=== PATIENT | female | born 1995 | race Caucasian/White ===

== ENCOUNTER 2023-08-08 07:55 | Outpatient (RCR) | payer OTHER, SELFPAY | END 2023-08-08 23:59 | disposition home or self-care (01) | LOC: RPT 07:55 | PROVIDERS: ATTENDING PHYSICIAN Physician Assistant Medical | DX: M54.16 Radiculopathy, lumbar region (principal); M17.0 Bilateral primary osteoarthritis of knee; M22.2X9 Patellofemoral disorders, unspecified knee; Z73.6 Limitation of activities due to disability; R26.2 Difficulty in walking, not elsewhere classified; M62.81 Muscle weakness (generalized) | CPT/HCPCS: 97110; 97112; 97163; 97535 ==

== ENCOUNTER 2023-09-11 13:59 | Outpatient (RCR) | payer OTHER, SELFPAY | END 2023-09-11 23:59 | disposition home or self-care (01) | LOC: RPT 13:59 | PROVIDERS: ATTENDING PHYSICIAN Physician Assistant Medical | DX: M54.16 Radiculopathy, lumbar region (principal); M17.0 Bilateral primary osteoarthritis of knee; Z73.6 Limitation of activities due to disability; M22.2X9 Patellofemoral disorders, unspecified knee; R26.2 Difficulty in walking, not elsewhere classified; M62.81 Muscle weakness (generalized); M32.9 Systemic lupus erythematosus, unspecified | CPT/HCPCS: 97014; 97110; 97112; 97535 ==

== ENCOUNTER → 2023-10-02 15:26 | Outpatient (REF) | payer OTHER, SELFPAY | LOC: RAD 15:26 | PROVIDERS: ATTENDING PHYSICIAN Internal Medicine; FAMILY PHYSICIAN Family Medicine | DX: R60.9 Edema, unspecified (principal) | CPT/HCPCS: 93971 ==

== ENCOUNTER 2023-10-08 17:22 | Emergency (ER) | payer OTHER, SELFPAY ==
[2023-10-08 17:23] VITALS: BP 132/108
--- NOTE | 2023-10-08 18:49 | ED.GENMED ---
History of Present Illness
General
Chief Complaint: DVT/Possible Blood Clot
Source: patient
Exam Limitations: none
Time Seen by Provider: 10/08/23 17:55
Nursing documentation reviewed up to this point in time: agreed with
Travel History
Have you had any contact with someone who has COVID-19?: No
Do you have any symptoms of coronavirus? Fever > 100 degrees, chills, cough, shortness of breath, sore throat, loss of taste or smell, muscle aches, or headache?: No
History of Present Illness
History of Present Illness:
Patient is a 27 yo female with PMH of SLE, currently on Benlysta infusions, methotrexate, Plaquenil, who presents to the emergency department for an issue with getting her medication. Patient reports that approximately 2 weeks ago, she started to
notice what appeared to be bruising over her left leg which then moved to the right leg. Pt reports that the right leg was painful. Pt spoke with her interior systems carpenter, who ordered a DVT ultrasound of the leg. Patient was initially told that there
was no DVT, however, she was contacted by her interior systems carpenter today and was told that there actually was a clot and that she needed to be on anticoagulation. Pt went to the pharmacy to meat pickler the anticoagulant, which was fondaparinux. When the
patient went there, the pharmacy told her that it was not in stock and was not in stock in any local pharmacies. Pt was unable to get in touch with her interior systems carpenter for an alternative and was concerned about the blood clot traveling to her lungs
so she decided to come to the emergency department. Pt reports that while she was in triage, she was able to get in touch with her interior systems carpenter who told her that she could be on Lovenox instead. He also informed her that he would have her follow
up with vascular surgery as an outpatient. Pt denies history of VTE, denies chest pain, shortness of breath.
Past History
Past History
ED Past Medical History: Other (lupus, lumbar herniation)
ED Past Surgical History: Other (rfa)
Social History
Tobacco: Non-smoker
Alcohol: Occasional
Drug: Marijuana
Personal:
Living: with family
Review of Systems
Review of Systems
Allergies reviewed?: Yes
All Other Systems: ROS reviewed and negative except as documented in HPI and ROS
Constitutional: Reports no symptoms
EENT: Reports no symptoms
Respiratory: Reports no symptoms
Cardiac: Reports no symptoms
ABD/GI: Reports no symptoms
: Reports no symptoms
Musculoskeletal: Reports no symptoms
Skin: Reports other (bruising to the right calf which is resolving)
Neurological: Reports no symptoms
Endocrine: Reports no symptoms
Hematologic/Lymphatic: Reports no symptoms
Psychiatric: Reports no symptoms
Phy Exam
General Physical Exam
General Presentation: well appearing and no apparent distress
General Skin: warm and dry
General Habitus: normal
General Mental: alert
General Hydration: appears well hydrated
ENT Exam
ENT Exam: EOMI, pharynx normal, neck supple and normocephalic
Eye Exam
Eye Exam: PERRL, cornea clear and conjunctiva normal
Cardiovascular Exam
Cardiovascular Exam: regular rate/rhythm, no edema, no murmur and normal peripheral pulses
Pulmonary Exam
Pulmonary Exam: lungs clear, no respiratory distress, no rales, no crackles, no rhonchi, no stridor, no wheezing and no cough
Neurological Exam
Neurological Exam: alert, oriented x3, no motor deficits and speech normal
Musculoskeletal Exam
Musculoskeletal Exam: full ROM, no edema and other (resolving ecchmyosis to the right posterior calf, there is no erythema, no swelling, no ttp, 2+ DP pulses bilaterally, sensation intact to light touch distally bilaterally)
Skin Exam
Skin Exam: normal color, warm/dry, no rash and no petechia
Psychiatric Exam
Psychiatric Exam: normal mood/affect
Course
Orders/Labs/Results
Orders:
Orders
10/08/23 18:48
Enoxaparin Sodium [Lovenox] 40 mg SC NOW STA
Vital Signs
Initial and Last Documented VS:
Initial Vital Signs
Temp Pulse Resp BP Pulse Ox
98.7 F 107 16 132/108 98
10/08/23 17:23 10/08/23 17:23 10/08/23 17:23 10/08/23 17:23 10/08/23 17:23
Last Documented Vital Signs
Temp Pulse Resp BP Pulse Ox
98.0 F 98 16 128/88 99
10/08/23 19:22 10/08/23 19:22 10/08/23 19:22 10/08/23 19:22 10/08/23 19:22
*Critical Care Note
Total Time (30-74mins, 75-104mins- exclusive of procedures): Not Applicable
Update Note
Update Note:
27 yo female p/w difficulty obtaining a blood thinner prescribed to her by her interior systems carpenter for superficial thrombosis seen on outpatient ultrasound 1 week ago. Pt denies chest pain, shortness of breath. On arrival, VSS, afebrile. On exam, pt
is well-appearing and in NAD, she is neurovascularly intact. Discussed with ED attending, anticoagulation not typically prescribed for superficial thrombosis, however, interior systems carpenter may have wanted her on it due to concerns for a clotting
disorder. Transportation Dispatcher had mentioned Lovenox as an alternative to the fondaparinux that he had prescribed. Will give a dose of Lovenox to the patient here tonight and have the patient contact her interior systems carpenter tomorrow about a
prescription/Lovenox teaching. Patient is safe for discharge to home with return precautions, she expressed understanding of the plan and agreed.
ED Attending Note
-
Portions of this chart may have been created with voice recognition software.� Occasional wrong word or��sound alike� substitutions may have occurred due to the inherent limitations of voice recognition software.
Discharge Plan
Departure
Patient Disposition: Home (Routine Discharge)
Date of Disposition: 10/08/23
Time of Disposition: 18:57
Patient with high blood pressure during this ER visit?: Yes
Condition: Good
Covid-19: Not Applicable
Discharge Problem:
Superficial thrombosis of lower extremity
Instructions: Superficial vein phlebitis and thrombosis
Prescriptions:
No Action
hydroxychloroquine 200 MG tablet
200 mg PO BID
loratadine-pseudoephedrine 240 MG/10 MG tablet extended release 24 hr
1 tab PO PRN PRN (Reason: seasonal allergies)
PNV cmb#95-ferrous fumarate-FA [ Multivitamins] 1 EACH tablet
1 ea PO DAILY
acetaminophen 325 MG tablet
650 mg PO Q4HPRN PRN (Reason: mild pain) 0RF
sennosides-docusate sodium 1 TABLET tablet
1 tab PO DAILYPRN PRN (Reason: constipation) 0RF
ibuprofen 600 MG tablet
600 mg PO Q4HPRN PRN (Reason: moderate pain/cramps) 0RF
cyclobenzaprine 10 mg tablet
20 mg PO TID PRN (Reason: muscle spasm) Qty: 10 0RF
Referrals:
Daphnie Laboy, [Family Provider] - Tomorrow
Activity Restrictions/Additional Instructions:
You were seen in the emergency department for a recently diagnosed superficial thrombosis of your leg. You were given a dose of a blood thinner called Lovenox today. Please continue to rest and elevate your legs and use warm compresses to the
affected area for 20 minutes at a time 4-5 times a day. Please contact your doctor tomorrow to determine if they want you to continue the Lovenox and for a prescription for the same if they do. Please return to the emergency department for
increasing pain, swelling, redness, streaking redness, chest pain, shortness of breath, fever greater than 100.4F, or for any other worsening or concerning symptoms.
Interventions
Interventions:
*Risk Screen - Suicide Last Done: 10/08/23 19:22
*General Assessment Last Done: 10/08/23 19:22
*Neglect/Abuse Screening Last Done: 10/08/23 19:22
ED- Fall Risk Assessment Last Done: 10/08/23 19:22
*ED COVID-19 Vaccine History Last Done: 10/08/23 17:23
*Nursing Disposition Last Done: 10/08/23 19:22
ED- Cardiac Assessment Last Done: 10/08/23 19:21
ED- Pulmonary Assessment Last Done: 10/08/23 19:21
ED-Peripheral Vascular Assessment Last Done: 10/08/23 19:21
ED-Skin Assessment Last Done: 10/08/23 19:21
Discharge Date and Time
Discharge Date/Time: 10/08/23 19:23
Print Language: SAMI
[2023-10-08] MEDS: LOVENOX 40 MG SC (19:14)
[2023-10-08 19:22] VITALS: BP 128/88
== END 2023-10-08 19:23 | disposition home or self-care (01) ==
LOC: EMR 17:22
PROVIDERS: EMERGENCY PHYSICIAN Student in an Organized Health Care Education/Training Program; FAMILY PHYSICIAN Family Medicine
DX: I82.811 Embolism and thrombosis of superficial veins of right lower extremity (principal); R03.0 Elevated blood-pressure reading, without diagnosis of hypertension
CPT/HCPCS: 96372; 99284

== ENCOUNTER 2023-10-09 07:55 | Outpatient (RCR) | payer OTHER, SELFPAY | END 2023-10-09 23:59 | disposition home or self-care (01) | LOC: RPT 07:55 | PROVIDERS: ATTENDING PHYSICIAN Physician Assistant Medical | DX: M54.16 Radiculopathy, lumbar region (principal); M17.0 Bilateral primary osteoarthritis of knee; Z73.6 Limitation of activities due to disability; M22.2X9 Patellofemoral disorders, unspecified knee; R26.2 Difficulty in walking, not elsewhere classified; M62.81 Muscle weakness (generalized); M32.9 Systemic lupus erythematosus, unspecified | CPT/HCPCS: 97110; 97112; 97535 ==

== ENCOUNTER 2023-11-13 06:30 | Outpatient (RCR) | payer OTHER, SELFPAY | END 2023-11-13 23:59 | disposition home or self-care (01) | LOC: RPT 06:30 | PROVIDERS: ATTENDING PHYSICIAN Physician Assistant Medical | DX: M54.16 Radiculopathy, lumbar region (principal); M17.0 Bilateral primary osteoarthritis of knee; Z73.6 Limitation of activities due to disability; M22.2X9 Patellofemoral disorders, unspecified knee; R26.2 Difficulty in walking, not elsewhere classified; M62.81 Muscle weakness (generalized); M32.9 Systemic lupus erythematosus, unspecified | CPT/HCPCS: 97010; 97110 ==

== ENCOUNTER 2023-12-11 15:19 | Outpatient (RCR) | payer OTHER, SELFPAY | END 2023-12-11 23:59 | disposition home or self-care (01) | LOC: RPT 15:19 | PROVIDERS: ATTENDING PHYSICIAN Physician Assistant Medical | DX: M54.16 Radiculopathy, lumbar region (principal); M17.0 Bilateral primary osteoarthritis of knee; Z73.6 Limitation of activities due to disability; M22.2X9 Patellofemoral disorders, unspecified knee; R26.2 Difficulty in walking, not elsewhere classified; M62.81 Muscle weakness (generalized); M32.9 Systemic lupus erythematosus, unspecified | CPT/HCPCS: 97110; 97112 ==

== ENCOUNTER 2024-01-14 11:57 | Outpatient (RCR) | payer OTHER, SELFPAY | END 2024-01-14 23:59 | disposition home or self-care (01) | LOC: RPT 11:57 | PROVIDERS: ATTENDING PHYSICIAN Physician Assistant Medical | DX: M54.16 Radiculopathy, lumbar region (principal); M17.0 Bilateral primary osteoarthritis of knee; M17.11 Unilateral primary osteoarthritis, right knee; M17.12 Unilateral primary osteoarthritis, left knee; M22.2X9 Patellofemoral disorders, unspecified knee; M22.2X1 Patellofemoral disorders, right knee; M22.2X2 Patellofemoral disorders, left knee; R26.2 Difficulty in walking, not elsewhere classified; M32.9 Systemic lupus erythematosus, unspecified; Z73.6 Limitation of activities due to disability; M62.81 Muscle weakness (generalized) | CPT/HCPCS: 97110; 97112; 97535 ==

== ENCOUNTER 2024-02-12 10:20 | Outpatient (RCR) | payer OTHER, SELFPAY | END 2024-02-12 23:59 | disposition home or self-care (01) | LOC: RPT 10:20 | PROVIDERS: ATTENDING PHYSICIAN Physician Assistant Medical | DX: M54.16 Radiculopathy, lumbar region (principal); M17.0 Bilateral primary osteoarthritis of knee; Z73.6 Limitation of activities due to disability; M22.2X1 Patellofemoral disorders, right knee; M22.2X9 Patellofemoral disorders, unspecified knee; M22.2X2 Patellofemoral disorders, left knee; R26.2 Difficulty in walking, not elsewhere classified; M32.9 Systemic lupus erythematosus, unspecified; M62.81 Muscle weakness (generalized) | CPT/HCPCS: 97110; 97112 ==

== ENCOUNTER 2024-03-04 08:04 | Outpatient (RCR) | payer OTHER, SELFPAY | END 2024-03-11 23:59 | disposition home or self-care (01) | LOC: RPT 08:04 | PROVIDERS: ATTENDING PHYSICIAN Physician Assistant Medical | DX: M54.16 Radiculopathy, lumbar region (principal); M17.0 Bilateral primary osteoarthritis of knee; M22.2X9 Patellofemoral disorders, unspecified knee; Z73.6 Limitation of activities due to disability; R26.2 Difficulty in walking, not elsewhere classified; M32.9 Systemic lupus erythematosus, unspecified; M62.81 Muscle weakness (generalized) | CPT/HCPCS: 97110; 97112 ==

== ENCOUNTER 2024-03-25 09:00 | Outpatient (RCR) | payer OTHER, SELFPAY | END 2024-03-25 23:59 | disposition home or self-care (01) | LOC: RPT 09:00 | PROVIDERS: ATTENDING PHYSICIAN Physician Assistant Medical | DX: M54.16 Radiculopathy, lumbar region (principal); M17.0 Bilateral primary osteoarthritis of knee; Z73.6 Limitation of activities due to disability; M22.2X9 Patellofemoral disorders, unspecified knee; R26.2 Difficulty in walking, not elsewhere classified; M32.9 Systemic lupus erythematosus, unspecified; M62.81 Muscle weakness (generalized) | CPT/HCPCS: 97110; 97112 ==

== ENCOUNTER 2024-05-14 14:53 | Outpatient (RCR) | payer OTHER, SELFPAY | END 2024-05-14 23:59 | disposition home or self-care (01) | LOC: RPT 14:53 | PROVIDERS: ATTENDING PHYSICIAN Physician Assistant Medical | DX: M54.16 Radiculopathy, lumbar region (principal); M17.0 Bilateral primary osteoarthritis of knee; Z73.6 Limitation of activities due to disability; M22.2X9 Patellofemoral disorders, unspecified knee; M22.2X1 Patellofemoral disorders, right knee; R26.2 Difficulty in walking, not elsewhere classified; M22.2X2 Patellofemoral disorders, left knee; M32.9 Systemic lupus erythematosus, unspecified; M62.81 Muscle weakness (generalized) | CPT/HCPCS: 97010; 97012; 97110; 97140 ==

== ENCOUNTER 2024-06-11 10:04 | Outpatient (RCR) | payer OTHER, SELFPAY | END 2024-06-11 23:59 | disposition home or self-care (01) | LOC: RPT 10:04 | PROVIDERS: ATTENDING PHYSICIAN Physician Assistant Medical | DX: M54.16 Radiculopathy, lumbar region (principal); M17.0 Bilateral primary osteoarthritis of knee; Z73.6 Limitation of activities due to disability; R26.2 Difficulty in walking, not elsewhere classified; M22.2X1 Patellofemoral disorders, right knee; M22.2X2 Patellofemoral disorders, left knee; M22.2X9 Patellofemoral disorders, unspecified knee; M32.9 Systemic lupus erythematosus, unspecified; M62.81 Muscle weakness (generalized) | CPT/HCPCS: 97010; 97012; 97110; 97140 ==

== ENCOUNTER 2024-07-16 06:51 | Outpatient (RCR) | payer OTHER, SELFPAY | END 2024-07-16 23:59 | disposition home or self-care (01) | LOC: RPT 06:51 | PROVIDERS: ATTENDING PHYSICIAN Physician Assistant Medical | DX: M54.16 Radiculopathy, lumbar region (principal); M17.0 Bilateral primary osteoarthritis of knee; Z73.6 Limitation of activities due to disability; R26.2 Difficulty in walking, not elsewhere classified; M22.2X1 Patellofemoral disorders, right knee; M22.2X2 Patellofemoral disorders, left knee; M54.2 Cervicalgia; M22.2X9 Patellofemoral disorders, unspecified knee; M32.9 Systemic lupus erythematosus, unspecified; M62.81 Muscle weakness (generalized) | CPT/HCPCS: 97110; 97112; 97140 ==

== ENCOUNTER 2024-08-12 09:01 | Outpatient (RCR) | payer OTHER, SELFPAY | END 2024-08-12 23:59 | disposition home or self-care (01) | LOC: RPT 09:01 | PROVIDERS: ATTENDING PHYSICIAN Physician Assistant Medical | DX: M54.16 Radiculopathy, lumbar region (principal); M17.0 Bilateral primary osteoarthritis of knee; Z73.6 Limitation of activities due to disability; M22.2X9 Patellofemoral disorders, unspecified knee; R26.2 Difficulty in walking, not elsewhere classified; M62.81 Muscle weakness (generalized); M54.2 Cervicalgia; M22.2X1 Patellofemoral disorders, right knee; M22.2X2 Patellofemoral disorders, left knee; M32.9 Systemic lupus erythematosus, unspecified | CPT/HCPCS: 97012; 97110; 97140 ==

== ENCOUNTER → 2024-09-01 08:58 | Outpatient (REF) | payer OTHER, SELFPAY | LOC: RAD 08:58 | PROVIDERS: ATTENDING PHYSICIAN Internal Medicine; FAMILY PHYSICIAN Family Medicine | DX: R09.1 Pleurisy (principal) | CPT/HCPCS: 71046 ==

== ENCOUNTER 2024-09-09 09:02 | Outpatient (RCR) | payer OTHER, SELFPAY | END 2024-09-09 23:59 | disposition home or self-care (01) | LOC: RPT 09:02 | PROVIDERS: ATTENDING PHYSICIAN Physician Assistant Medical | DX: M54.16 Radiculopathy, lumbar region (principal); M17.0 Bilateral primary osteoarthritis of knee; Z73.6 Limitation of activities due to disability; M22.2X9 Patellofemoral disorders, unspecified knee; R26.2 Difficulty in walking, not elsewhere classified; M62.81 Muscle weakness (generalized); M54.2 Cervicalgia; M22.2X1 Patellofemoral disorders, right knee; M22.2X2 Patellofemoral disorders, left knee; M32.9 Systemic lupus erythematosus, unspecified | CPT/HCPCS: 97110; 97140 ==

== ENCOUNTER 2024-10-06 16:04 | Outpatient (RCR) | payer OTHER, SELFPAY | END 2024-10-06 23:59 | disposition home or self-care (01) | LOC: RPT 16:04 | PROVIDERS: ATTENDING PHYSICIAN Physician Assistant Medical | DX: M54.16 Radiculopathy, lumbar region (principal); M17.0 Bilateral primary osteoarthritis of knee; Z73.6 Limitation of activities due to disability; M22.2X9 Patellofemoral disorders, unspecified knee; M62.81 Muscle weakness (generalized); R26.2 Difficulty in walking, not elsewhere classified; M54.2 Cervicalgia; M22.2X1 Patellofemoral disorders, right knee; M22.2X2 Patellofemoral disorders, left knee; M32.9 Systemic lupus erythematosus, unspecified | CPT/HCPCS: 97110; 97140 ==

== ENCOUNTER 2024-11-11 09:05 | Outpatient (RCR) | payer OTHER, SELFPAY | END 2024-11-11 23:59 | disposition home or self-care (01) | LOC: RPT 09:05 | PROVIDERS: ATTENDING PHYSICIAN Physician Assistant Medical | DX: M54.16 Radiculopathy, lumbar region (principal); M17.0 Bilateral primary osteoarthritis of knee; Z73.6 Limitation of activities due to disability; M62.81 Muscle weakness (generalized); R26.2 Difficulty in walking, not elsewhere classified; M54.2 Cervicalgia; M22.2X1 Patellofemoral disorders, right knee; M22.2X2 Patellofemoral disorders, left knee; M32.9 Systemic lupus erythematosus, unspecified; M22.2X9 Patellofemoral disorders, unspecified knee | CPT/HCPCS: 97010; 97110; 97140 ==

== ENCOUNTER 2024-11-26 08:13 | Outpatient (RCR) | payer OTHER, SELFPAY | END 2024-11-26 23:59 | disposition home or self-care (01) | LOC: RPT 08:13 | PROVIDERS: ATTENDING PHYSICIAN Physician Assistant Medical | DX: M54.16 Radiculopathy, lumbar region (principal); M17.0 Bilateral primary osteoarthritis of knee; Z73.6 Limitation of activities due to disability; M62.81 Muscle weakness (generalized); R26.2 Difficulty in walking, not elsewhere classified; M54.2 Cervicalgia; M22.2X1 Patellofemoral disorders, right knee; M22.2X2 Patellofemoral disorders, left knee; M32.9 Systemic lupus erythematosus, unspecified; M22.2X9 Patellofemoral disorders, unspecified knee | CPT/HCPCS: 97110; 97535 ==